=== PATIENT | male | born 1960 | race American Indian/Alaskan Native ===

== ENCOUNTER 2019-10-01 16:52 | Observation (INO) | payer BC ==
[2019-10-01] MEDS ORDERED: ASPIRIN 325 MG TAB PO ONE (17:04)
--- NOTE | 2019-10-01 17:04 | Event Note ---
ED Screening Note Date of service: 10/01/19 Time: 17:03 ED Screening Note: 59 y o male presents with worsening chest pain x 2 weeks started sob today cc of headache and left shoulder radiating pain no PMH hx BP eleva This initial assessment/diagnostic orders/clinical plan/treatment(s) is/are subject to change based on patients health status, clinical progression and re- assessment by fellow clinical providers in the ED. Further treatment and workup at subsequent clinical providers discretion. Patient/guardian urged not to elope from the ED as their condition may be serious if not clinically assessed and managed. Initial orders include: labs,ekg
[2019-10-01 17:26] LABS: Hematocrit 47.3 % (35.5-45.6); Hemoglobin 16.5 gm/dl (11.8-15.2); Mean Corpuscular HGB Conc 35 % (32-34); Mean Corpuscular Volume 89 fl (84-94); Platelet Count 152 K/mm3 (140-440); Red Blood Count 5.34 M/mm3 (3.65-5.03); Red Cell Distribution Width 13.3 % (13.2-15.2)
--- NOTE | 2019-10-01 17:42 | XRay Report ---
CHEST 2 VIEWS INDICATION / CLINICAL INFORMATION: Chest Pain. COMPARISON: Chest x-ray on 09/25/2018 FINDINGS: SUPPORT DEVICES: None. HEART / MEDIASTINUM: No significant abnormality. LUNGS / PLEURA: No significant pulmonary or pleural abnormality. No pneumothorax. ADDITIONAL FINDINGS: No significant additional findings. IMPRESSION: 1. No acute findings. Signer Name: Jm Marks MD Signed: 10/01/2019 5:37 PM Workstation Name: [id number]
[2019-10-01 17:46] LABS: BUN/Creatinine Ratio 14; Blood Urea Nitrogen 15 mg/dL (9-20); Calcium 8.9 mg/dL (8.4-10.2); Hemolysis Index 17
[2019-10-01 18:17] LABS: Platelet Estimate Consistent w Auto; Stomatocytes Few; Total Cells Counted 100
[2019-10-01] MEDS ORDERED: ONDANSETRON 4 MG/2 ML INJ IV ONE (20:21)
[2019-10-01] MEDS ORDERED: MORPHINE 4 MG/1 ML INJ IV ONE (20:21)
--- NOTE | 2019-10-01 20:26 | Emergency Department Report ---
ED Chest Pain HPI - General Chief Complaint: Chest Pain Stated Complaint: CHEST PAIN Time Seen by Provider: 10/01/19 20:14 Source: patient Mode of arrival: Ambulatory Limitations: No Limitations - History of Present Illness Initial Comments: Patient is 59 years old male with history of hypertension, not on any medication. Patient also had history of hyperlipidemia. Patient presented to the ER complaining of substernal chest pain, heaviness and tearing sometimes radiated to his back and to his left upper extremity and to his neck and jaw. Patient stated the pain started 1 week ago but today became worse. Patient describes his pain is 8 out of 10. Patient is also complaining of shortness of breath. Patient denies any fever or chills. MD Complaint: chest pain -: week(s) Pain Location: substernal Pain Radiation: LUE, back, neck, jaw/teeth Severity scale (0 -10): 6 Quality: heaviness, ripping Consistency: constant - Related Data Allergies Allergy/AdvReac Type Severity Reaction Status Date / Time No Known Allergies Allergy Unverified 10/01/19 16:55 Heart Score - HEART Score History: Moderately suspicious EKG: Non-specific Age: 45-65 Risk factors: 1-2 risk factors Troponin: < normal limit HEART Score: 4 - Critical Actions Critical Actions: 4-6 pts:12-16.6% risk of adverse cardiac event. Should be admitted ED Review of Systems ROS: Stated complaint: CHEST PAIN Other details as noted in HPI Comment: All other systems reviewed and negative Constitutional: denies: chills, fever Respiratory: denies: cough, shortness of breath, SOB with exertion, wheezing Cardiovascular: chest pain, palpitations Gastrointestinal: denies: abdominal pain, nausea, vomiting, diarrhea, constipation, hematemesis, melena, hematochezia Musculoskeletal: denies: back pain Neurological: denies: headache, weakness, numbness, paresthesias, confusion, abnormal gait ED Past Medical Hx - Past Medical History Previous Medical History?: No - Surgical History Past Surgical History?: Yes Additional Surgical History: achillies - Social History Smoking Status: Never Smoker Substance Use Type: Alcohol ED Physical Exam - General Limitations: No Limitations General appearance: alert, in no apparent distress - Head Head exam: Present: atraumatic, normocephalic, normal inspection - Eye Eye exam: Present: normal appearance, PERRL - ENT ENT exam: Present: normal exam, normal orophraynx, mucous membranes moist - Neck Neck exam: Present: normal inspection, full ROM. Absent: tenderness, meningismus, lymphadenopathy, thyromegaly - Respiratory Respiratory exam: Present: normal lung sounds bilaterally - Cardiovascular Cardiovascular Exam: Present: regular rate, normal rhythm, normal heart sounds - GI/Abdominal GI/Abdominal exam: Present: soft, normal bowel sounds. Absent: distended, tenderness, guarding, rebound, rigid, organomegaly, mass, bruit, pulsatile mass, hernia - Extremities Exam Extremities exam: Present: normal inspection, full ROM, normal capillary refill. Absent: tenderness, pedal edema, calf tenderness - Back Exam Back exam: Present: normal inspection, full ROM. Absent: CVA tenderness (R), CVA tenderness (L) - Neurological Exam Neurological exam: Present: alert, oriented X3, CN II-XII intact, normal gait, reflexes normal - Psychiatric Psychiatric exam: Present: normal mood - Skin Skin exam: Present: warm, intact, normal color ED Course Vital Signs 10/01/19 10/01/19 10/01/19 16:55 17:03 20:14 Temperature 99.3 F 99.3 F Pulse Rate 97 H 97 H 104 H Respiratory 20 20 22 Rate Blood Pressure 188/117 188/117 Blood Pressure 177/110 [Left] O2 Sat by Pulse 96 96 96 Oximetry 10/01/19 10/01/19 20:32 21:10 Temperature Pulse Rate 102 H 98 H Respiratory 20 Rate Blood Pressure 163/103 Blood Pressure 153/99 [Left] O2 Sat by Pulse 97 Oximetry ED Medical Decision Making - Lab Data Result diagrams: 10/01/19 17:10 10/01/19 17:10 - EKG Data -: EKG Interpreted by Oh EKG shows normal: sinus rhythm Rate: normal - EKG Data Interpretation: no acute changes - Radiology Data Radiology results: report reviewed - Medical Decision Making Patient is 59 years old male with history of hypertension, not on any medication. Patient also had history of hyperlipidemia. Patient presented to the ER complaining of substernal chest pain, heaviness and tearing sometimes radiated to his back and to his left upper extremity and to his neck and jaw. Patient stated the pain started 1 week ago but today became worse. Patient describes his pain is 8 out of 10. Patient is also complaining of shortness of breath. Patient denies any fever or chills. EKG showed no ST elevation. Labs reviewed and is unremarkable. Patient found to have a blood pressure of 180/117. Patient received labetalol 10 mg IV and morphine and Zofran. Patient stated that his pain is better. CTA chest and abdomen negative for acute finding. I discussed the patient with Dr. Alayna Wells, she agreed to admit the patient to medical service for further management. Critical Care Time: Yes Critical care time in (mins) excluding proc time.: 30 Critical care attestation.: If time is entered above; I have spent that time in minutes in the direct care of this critically ill patient, excluding procedure time. ED Disposition Clinical Impression: Unstable angina, Chest pain, Hypertensive urgency Disposition: 09 OP ADMIT IP TO THIS HOSP Is pt being admited?: Yes Condition: Stable Instructions: Angina (ED), Chest Pain (ED)
--- NOTE | 2019-10-01 21:47 | Cat Scan Report ---
CTA CHEST, ABDOMEN, AND PELVIS WITHOUT AND WITH CONTRAST INDICATION / CLINICAL INFORMATION: Chest pain, rule out aortic dissection.. TECHNIQUE: Axial CT images were obtained through the chest, abdomen, and pelvis before and after injection of 10 0 MLO Omnipaque 350 IV contrast. 3 plane MIP and/or 3D reconstructions were produced. All CT scans at this location are performed using CT dose reduction for ALARA by means of automated exposure control . COMPARISON: None available. FINDINGS: Heart: Normal heart size. No pericardial fluid. No significant coronary atherosclerosis is evident. Thoracic Aorta: No significant abnormality. Great Vessels: No significant abnormality. Pulmonary Arteries: Prominent caliber of the pulmonary trunk and main pulmonary arteries. The transve rse diameter of the pulmonary trunk is about 3.7 cm. Additional Chest Findings: No pleural fluid or pneumothorax. A focal groundglass nodule in the right lower lobe posteriorly on series 2 image 125 measures 2.4 x 2 x 2.9 cm. No other significant airspace opacity or nodule is identified. Abdominal Aorta: No significant abnormality. Renal arteries: No significant abnormality. There are 2 right renal arteries and 2 left renal arterie s. There are widely patent. Celiac artery: No significant abnormality. Superior Mesenteric Artery: No significant abnormality. Inferior mesenteric artery: No significant abnormality. Right Iliac Arteries: No significant abnormality.. Left Iliac Arteries: No significant abnormality.. Additional Abdominopelvic Findings: Extensive colonic diverticulosis. No evidence of acute diverticul itis. The liver, gallbladder, spleen, pancreas, adrenals, urinary tracts, and proximal gastrointestin al tract are grossly unremarkable. The appendix is normal. No pneumoperitoneum, ascites or organized fluid collection. No lymphadenopathy. Skeletal Structures: No significant abnormality. IMPRESSION: 1. No acute abnormality. 2. Prominence of the central pulmonary arteries is suggestive of underlying pulmonary hypertension. 3. Groundglass nodule measuring greater than 2 cm in average dimension in the right lower lobe is no tara. See below for recommendation. 4. Diverticulosis of the colon without evidence of acute diverticulitis. INCIDENTAL PULMONARY NODULE RECOMMENDATION Recommendation: Subsolid Nodule (Ground glass) >=6 mm - CT at 6-12 months to confirm persistence, then CT every 2 years until 5 years Note These recommendations do not apply to lung cancer screening, patients with immunosuppression, o r patients with known primary cancer. Note Newly detected indeterminate nodule in persons 35 years of age or older. Persons under the age of 35 should not receive follow-up unless there is a known primary cancer. Low Risk Patient -- minimal or absent history of smoking and of other known risk factors. High Risk Patient -- history of smoking or of other known risk factors. Nodule dimensions are average of long and short axes, rounded to the nearest millimeter. Based on 2017 Fleischner Society Guidelines found in Radiology 2017 284:228-243. [email or web address] Signer Name: Saman Driscoll MD Signed: 10/01/2019 9:42 PM Workstation Name: [id number]
[2019-10-01] MEDS ORDERED: MORPHINE 2 MG/1 ML INJ IV PRN (23:01)
[2019-10-01] MEDS ORDERED: ONDANSETRON 4 MG/2 ML INJ IV PRN (23:01)
[2019-10-01] MEDS ORDERED: ACETAMINOPHEN 325 MG TAB PO PRN (23:01)
--- NOTE | 2019-10-01 23:04 | History and Physical Report ---
History of Present Illness History of present illness: 59-year-old man with a known medical history comes emergency room with complaints of chest pain that started 1 month ago. Pain is in the epigastric area which he describes as a pressure-like sensation, dull, intermittent for hours, intensity 5/10, no radiation, cannot identify exacerbating or relieving factors. Admits to headache, hurting of his face, pain in his upper back. Patient has not seen a physician for his pain. He had his physical 3 months ago and he stated everything was fine. Denies nausea vomiting, admits to shortness of breath, diaphoresis, no palpitation. No recent stress test. Blood pressure very elevated upon arrival, status post IV labetalol with good results. The patient is being admitted for hypertensive urgency, chest pain. Review Of Systems: Constitutional: no weight loss, fever, chills Ears, eyes, nose, mouth and throat: no nasal congestion, no nasal discharge, no sinus pressure, blurry vision, diplopia Neck: No neck pain or rigidity. Cardiovascular: No palpitations, +chest pain Respiratory: + shortness of breath, no cough Gastrointestinal: No hematochezia, abdominal pain Genitourinary : no dysuria, frequency Musculoskeletal: no muscle ache , joint pain Integumentary: no rash, no pruritis Neurological: no parathesias, focal weakness Endocrine: no cold or heat intolerance, no polyuria or polydipsia Hematologic/Lymphatic: no easy bruising, no easy bleeding, no gland swelling Allergic/Immunologic: no urticaria, no angioedema. PAST MEDICAL HISTORY: None PAST SURGICAL HISTORY: Achilles tendon SOCIAL HISTORY: Social alcohol, no drugs, tobacco FAMILY HISTORY: Hypertension Medications and Allergies Allergies Allergy/AdvReac Type Severity Reaction Status Date / Time No Known Allergies Allergy Unverified 10/01/19 16:55 Active Meds: Active Medications Acetaminophen (Tylenol) 650 mg PO Q4H PRN PRN Reason: Pain MILD(1-3)/Fever >100.5/BARCLAY Enoxaparin Sodium (Enoxaparin) 40 mg SUB-Q QAM YAKOV Morphine Sulfate (Morphine) 2 mg IV Q4H PRN PRN Reason: Pain, Moderate (4-6) Ondansetron HCl (Zofran) 4 mg IV Q4H PRN PRN Reason: Nausea And Vomiting Sodium Chloride (Sodium Chloride Flush Syringe 10 Ml) 10 ml IV BID YAKOV Sodium Chloride (Sodium Chloride Flush Syringe 10 Ml) 10 ml IV PRN PRN PRN Reason: LINE FLUSH Exam - Physical Exam Narrative exam: Gen. appearance: Patient lying in bed, no apparent distress HEENT: Normocephalic, atraumatic, pupils equally round and reactive to light, extraocular movement intact, and no sclericterus,. No JVD or thyromegaly or nodule,neck supple, no carotid bruit ,mucous membranes moist, no exudate or erythema Heart: S1, S2, regular rate and rhythm Lungs: Clear bilaterally, breathing comfortable Abdomen: Positive bowel sounds, nontender, nondistended, no organomegaly Extremity: no edema, cyanosis, clubbing Skin: No rash, nodules, warm, dry Neuro: speech is fluent, cranial nerves II to XII intact, motor and sensory, sensory intact - Constitutional Vitals: Temp Pulse Resp BP Pulse Ox 99.3 F 98 H 20 153/99 97 10/01/19 17:03 10/01/19 21:10 10/01/19 21:10 10/01/19 21:10 10/01/19 21:10 Results - Labs CBC & Chem 7: 10/01/19 17:10 10/01/19 17:10 Labs: Abnormal lab results 10/01/19 Range/Units 17:10 RBC 5.34 H (3.65-5.03) M/mm3 Hgb 16.5 H (11.8-15.2) gm/dl Hct 47.3 H (35.5-45.6) % MCHC 35 H (32-34) % Seg Neuts % (Manual) 80.0 H (40.0-70.0) % Lymphocytes % (Manual) 7.0 L (13.4-35.0) % Monocytes % (Manual) 11.0 H (0.0-7.3) % Lymphocytes # (Manual) 0.5 L (1.2-5.4) K/mm3 - Imaging and Cardiology EKG: image reviewed Chest x-ray: report reviewed CT scan - abdomen: report reviewed CT scan - chest: report reviewed CT scan - pelvis: report reviewed Assessment and Plan Assessment Chest pain secondary to hypertensive urgency Check cardiac enzymes, stress test Start aspirin, IV morphine, consult cardiology Hypertensive urgency Start antihypertensive DVT prophylaxis
[2019-10-01] MEDS ORDERED: SODIUM CHLORIDE 0.45% 1000 ML 1,000 ML IV SCH (23:45)
[2019-10-01] MEDS ORDERED: ACETAMINOPHEN 325 MG TAB ONE (23:52)
[2019-10-02] MEDS ORDERED: hydrALAZINE 20 MG/1 ML INJ IV PRN (05:17)
[2019-10-02 05:26] LABS: Hematocrit 46.3 % (35.5-45.6); Hemoglobin 15.7 gm/dl (11.8-15.2); Mean Corpuscular HGB Conc 34 % (32-34); Mean Corpuscular Volume 90 fl (84-94); Red Blood Count 5.17 M/mm3 (3.65-5.03); Red Cell Distribution Width 13.3 % (13.2-15.2)
[2019-10-02 05:50] LABS: BUN/Creatinine Ratio 11; Blood Urea Nitrogen 12 mg/dL (9-20); Calcium 8.7 mg/dL (8.4-10.2); Hemolysis Index 10
[2019-10-02 05:51] LABS: Creatine Kinase MB < 1.0 ng/mL (0.0-4.0)
[2019-10-02 06:51] LABS: Band Neutrophils # (Manual) 0.1 K/mm3; Eosinophils % (Manual) 0 % (0.0-4.3); Total Cells Counted 100
[2019-10-02 06:57] LABS: Platelet Estimate Consistent w Auto; RBC Morphology Normal
[2019-10-02 06:59] LABS: Platelet Count 137 K/mm3 (140-440)
[2019-10-02] MEDS ORDERED: ENOXAPARIN 40 MG/0.4 ML INJ SUB-Q SCH (10:00)
[2019-10-02] MEDS ORDERED: ASPIRIN 81 MG TAB CHEW PO SCH (10:00)
[2019-10-02] MEDS ORDERED: amLODIPine 10 MG TAB PO SCH (10:00)
--- NOTE | 2019-10-02 10:04 | Discharge Summary ---
Providers - Providers Date of Admission: 10/01/19 22:49 Date of discharge: 10/02/19 Attending physician: TRACEY GIRON 10/01/19 23:01 Consult to Physician [CONS] Routine Comment: Consulting Provider: SANDRA KNIGHT Physician Instructions: Reason For Exam: cp Primary care physician: RASHEED BROTHERS Hospitalization Condition: Stable Hospital course: Patient is a 59 yo man with a history of Lung nodule (per Dr. 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 Rasheed Brothers) who presents to [facility] ED with chest pains/epigastric pains and SOB. He was found to have bp of 188/117 HR 97. He was treated with IV labetatol and admitted to the hospital. * CTA chest/abd/pelvis IMPRESSION: 1. No acute abnormality. 2. Prominence of the central pulmonary arteries is suggestive of underlying pulmonary hypertension. 3. Groundglass nodule measuring greater than 2 cm in average dimension in the right lower lobe is noted. See below for recommendation (Recommendation: Subsolid Nodule (Ground glass) >=6 mm - CT at 6-12 months to confirm persistence, then CT every 2 years until 5 years) 4. Diverticulosis of the colon without evidence of acute diverticulitis. * 2v CXR IMPRESSION: 1. No acute findings. Chest pain secondary to hypertensive urgency: stress test negative Hypertensive urgency, suspect new diagnosis of Hypertension: Start antihypertensive Incidental Lung nodule: 6 month follow up with PCP Dr. Brothers AAA by history Acute Sinusitis: zach luevano, Disposition: DC- TO HOME OR SELFCARE Time spent for discharge: 35 minutes Core Measure Documentation - Palliative Care Palliative Care/ Comfort Measures: Not Applicable - Core Measures Any of the following diagnoses?: none - VTE Discharge Requirements Deep Vein Thrombosis/Pulmonary Embolism Present on Admission: No Has pt received <5 days of overlap therapy or INR<2.0: No Anticoagulant overlap therapy prescribed at discharge: No Contraindication No Overlap Therapy order at DC: Not Indicated Exam - Physical Exam Narrative exam: Gen: WDWN, NAD, Awake, Alert, Orientated x 3 HEENT: NCAT, EOMI, PERRL, OP Clear Neck: supple, no adenopathy, no thyromegaly, no JVD CVS/Heart: RRR, normal S1S2, pulses present bilaterally Chest/Lungs: CTA B, Symmetrical chest expansion, good air entry bilaterally GI/Abdomen: soft, NTND, good bowel sounds, no guarding or rebound /Bladder: no suprapubic tenderness, no CVA or paraspinal tenderness Extermity/Skin: no c/c/e, no obvious rash MSK: FROM x 4 Neuro: CN 2-12 grossly intact, no new focal deficits Psych: calm - Constitutional Vitals: Temp Pulse Resp BP Pulse Ox 98.1 F 83 18 143/84 93 10/02/19 07:46 10/02/19 04:00 10/02/19 07:46 10/02/19 07:46 10/02/19 04:00 Plan Activity: other (no strenous activity unless cleared by PCP) Diet: low salt Special Instructions: record daily BP diary Follow up with: RASHEED BROTHERS MD [Primary Care Provider] - 3-5 Days MCKAYLA SHANKS MD [Staff Physician] - 7 Days Prescriptions: Amlodipine Besylate [Norvasc] 5 mg PO QDAY #30 tablet RX: Azithromycin [Zithromax Z-GABI] 1 dose PO DAILY #1 pack
--- NOTE | 2019-10-02 13:35 | Consultation ---
History of Present Illness Consult date: 10/02/19 Requesting physician: YOBANY MATHEWS Consult reason: chest pain History of present illness: the patient is 59 year old male with a past medical history of hypertension, not on any medication, HLP. He is previously unknown to our practice. He presented with c/o chest pain for approx 1 week prior to arrival. He describes his chest pain as a substernal heaviness which sometimes radiates to his back and to his left upper extremity and to his neck and jaw. Patient stated the pain started 1 week ago but yesterday became worse. Patient describes his pain is 8 out of 10. The pain was associated with some SOB. Pt denies any palpitations, n/v, diaphoresis, dizziness or syncope. On evaluation, pt is chest pain free. Pt was scheduled for treadmill stress test this AM. Past History Past Medical History: hypertension, hyperlipidemia Medications and Allergies Allergies Allergy/AdvReac Type Severity Reaction Status Date / Time No Known Allergies Allergy Unverified 10/01/19 16:55 Home Medications Medication Instructions Recorded Confirmed Last Taken Type No Known Home Medications [No 10/02/19 10/02/19 Unknown History Reported Home Medications] Active Meds: Active Medications Acetaminophen (Tylenol) 650 mg PO Q4H PRN PRN Reason: Pain MILD(1-3)/Fever >100.5/BARCLAY Last Admin: 10/01/19 23:53 Dose: 650 mg Documented by: Amlodipine Besylate (Amlodipine) 5 mg PO QDAY [facility] Last Admin: 10/02/19 12:44 Dose: 5 mg Documented by: Aspirin (Baby Aspirin) 81 mg PO QDAY [facility] Last Admin: 10/02/19 12:44 Dose: 81 mg Documented by: Enoxaparin Sodium (Enoxaparin) 40 mg SUB-Q QAM [facility] Last Admin: 10/02/19 12:43 Dose: 40 mg Documented by: Hydralazine HCl (Apresoline) 5 mg IV Q6H PRN PRN Reason: Hypertension Sodium Chloride (Nacl 0.45% 1000 Ml) 1,000 mls @ 75 mls/hr IV DIRECT [facility] Last Admin: 10/02/19 00:48 Dose: 75 mls/hr Documented by: Morphine Sulfate (Morphine) 2 mg IV Q4H PRN PRN Reason: Pain, Moderate (4-6) Last Admin: 10/02/19 00:53 Dose: 2 mg Documented by: Ondansetron HCl (Zofran) 4 mg IV Q4H PRN PRN Reason: Nausea And Vomiting Sodium Chloride (Sodium Chloride Flush Syringe 10 Ml) 10 ml IV BID YAKOV Last Admin: 10/02/19 12:44 Dose: 10 ml Documented by: Sodium Chloride (Sodium Chloride Flush Syringe 10 Ml) 10 ml IV PRN PRN PRN Reason: LINE FLUSH Last Admin: 10/02/19 00:59 Dose: 10 ml Documented by: Review of Systems Constitutional: no weight loss, no weight gain, no fever, no chills, no sweats Ears, nose, mouth and throat: no ear pain, no nose pain, no sinus pressure, no sinus pain Cardiovascular: chest pain, shortness of breath, dyspnea on exertion, high blood pressure, no orthopnea, no palpitations, no rapid/irregular heart beat, no edema, no syncope, no lightheadedness, no leg edema Respiratory: shortness of breath, dyspnea on exertion, no cough, no congestion, no wheezing, no pain on inspiration Gastrointestinal: no abdominal pain, no nausea, no vomiting, no diarrhea, no constipation, no change in bowel habits Genitourinary Male: no dysuria, no hematuria, no flank pain, no discharge, no urinary frequency, no urinary hesitancy Musculoskeletal: no neck stiffness, no neck pain, no low back pain, no shooting leg pain Integumentary: no rash, no pruritis, no redness, no sores, no wounds Neurological: no head injury, no paralysis, no weakness, no parathesias, no numbness, no tingling, no seizures Psychiatric: no anxiety Endocrine: no cold intolerance, no heat intolerance Hematologic/Lymphatic: no easy bruising, no easy bleeding Allergic/Immunologic: no urticaria Physical Examination Vital Signs Temp Pulse Resp BP Pulse Ox 99.3 F 97 H 20 188/117 96 10/01/19 16:55 10/01/19 16:55 10/01/19 16:55 10/01/19 16:55 10/01/19 16:55 General appearance: no acute distress HEENT: Positive: PERRL, Normocephaly, Mucus Membranes Moist Neck: Positive: neck supple, trachea midline Cardiac: Positive: Reg Rate and Rhythm, S1/S2 Lungs: Positive: Decreased Breath Sounds Neuro: Positive: Grossly Intact Abdomen: Negative: Tender Skin: Negative: Rash Musculoskeletal: No Pain Extremities: Absent: edema Results 10/02/19 04:54 10/02/19 04:54 Cardiac Enzymes 10/02/19 Range/Units 04:54 CK-MB (CK-2) < 1.0 (0.0-4.0) ng/mL CBC 10/01/19 10/02/19 Range/Units 17:10 04:54 WBC 7.5 5.5 (4.5-11.0) K/mm3 RBC 5.34 H 5.17 H (3.65-5.03) M/mm3 Hgb 16.5 H 15.7 H (11.8-15.2) gm/dl Hct 47.3 H 46.3 H (35.5-45.6) % Plt Count 152 137 L (140-440) K/mm3 Comprehensive Metabolic Panel 10/01/19 10/02/19 Range/Units 17:10 04:54 Sodium 139 139 (137-145) mmol/L Potassium 3.9 4.0 (3.6-5.0) mmol/L Chloride 100.2 101.7 (98-107) mmol/L Carbon Dioxide 25 22 (22-30) mmol/L BUN 15 12 (9-20) mg/dL Creatinine 1.1 1.1 (0.8-1.5) mg/dL Glucose 91 100 (75-100) mg/dL Calcium 8.9 8.7 (8.4-10.2) mg/dL - Imaging and Cardiology EKG: report reviewed, image reviewed EKG interpretations - Telemetry EKG Rhythm: Sinus Rhythm - EKG Sinus rhythms and dysrhythmias: sinus rhythm Assessment and Plan S/p treadmill stress test this AM which was negative - pt walked ~8mins, no chest pain on treadmill, no ECG changes, good exercise tolerance. Currently stable cardiac status. Chest pain currently resolved. AMI r/o. Pt may discharge from cardiology standpoint. Recommend follow up in our office with Dr. Coty Rubio within 1-2 weeks ([phone]). The patient has been seen in conjunction with Dr. Coty Rubio who agrees with the assessment and plan of care. - Patient Problems (1) Chest pain Current Visit: Yes Status: Resolved (2) Uncontrolled hypertension Current Visit: Yes Status: Chronic (3) Hyperlipidemia Current Visit: Yes Status: Chronic
[2019-10-02 14:05] VITALS: BP 147/98
== END 2019-10-02 18:21 | disposition home or self-care (01) ==
LOC: ED 16:52 → EEVIPCON 16:52 → 4A 22:49
PROVIDERS: ADMIT Internal Medicine; ATTEND Internal Medicine
DX: I16.0 Hypertensive urgency (principal); I20.0 Unstable angina; R07.89 Other chest pain
CPT/HCPCS: 36415; 71046; 71275; 74174; 80048; 82550; 82553; 83880; 84484; 85007; 85025; 87040; 93005; 93010; 93017; 96372; 96374; 96375; 96376; 99291; G0378; J1650; J2270; J2405; J7030; Q9967

== ENCOUNTER 2020-01-01 07:48 | Outpatient (CLI) | payer BC ==
--- NOTE | 2020-01-01 10:58 | Magnetic Resonance Report ---
MRI RIGHT KNEE WITHOUT CONTRAST INDICATION / CLINICAL INFORMATION: MAIN: RIGHT KNEE PAIN patient continued to move, repeated scans, best possible study.. TECHNIQUE: Multiplanar, multisequence MR images were obtained. No contrast used. COMPARISON: None available. FINDINGS: ACL: No significant abnormality. PCL: No significant abnormality. DISTAL QUADRICEPS TENDON: No significant abnormality. PATELLAR TENDON: No significant abnormality. MEDIAL MENISCUS: Displaced horizontal undersurface tear in the posterior horn with meniscal fragment flipped into the medial gutter (series 3 image 8). LATERAL MENISCUS: No significant abnormality. POSTEROLATERAL CORNER: No significant abnormality. MCL: No significant abnormality. LCL: No significant abnormality. DISTAL IT BAND: No significant abnormality. PATELLOFEMORAL ALIGNMENT: No significant abnormality. ARTICULAR CARTILAGE: Moderate tricompartmental chondrosis of greatest severity on the patella, where there is full-thickness fissure at the median ridge (series 2 image 12). JOINT SPACE: Small joint effusion with synovitis. No significant popliteal cyst. No intra-articular b odies. BONES: No significant bone marrow edema. No fracture. No osseous lesion. No osteophytes. SOFT TISSUES: No significant abnormality. ADDITIONAL FINDINGS: None. IMPRESSION: 1. Moderate tricompartmental chondrosis. 2. Degenerative horizontal tear of the posterior horn with undersurface flap displaced into the media l gutter. 3. Small effusion with synovitis. Report dictated by: Saman Driscoll MD Report dictated on: 01/01/2020 9:23 AM I have reviewed the images, agree with this report, and edited this report as needed. Signer Name: Fab Whalen MD FACR Signed: 01/01/2020 10:53 AM Workstation Name: [employer]
== END 2020-01-01 07:49 | disposition home or self-care (01) ==
LOC: MRI 07:48
PROVIDERS: ATTEND Internal Medicine
DX: S83.203S Other tear of unspecified meniscus, current injury, right knee, sequela (principal); M25.461 Effusion, right knee; M65.861 Other synovitis and tenosynovitis, right lower leg; X58.XXXS Exposure to other specified factors, sequela
CPT/HCPCS: 73721

== ENCOUNTER 2020-07-27 11:12 | Observation (INO) | payer BC ==
[2020-07-27] MEDS ORDERED: ASPIRIN 325 MG TAB PO ONE (11:33)
[2020-07-27 11:55] LABS: Basophils % (Auto) 0.4 % (0.0-1.8); Eosinophils # (Auto) 0.1 K/mm3 (0.0-0.4); Eosinophils % (Auto) 0.9 % (0.0-4.3); Hematocrit 50.7 % (35.5-45.6); Hemoglobin 17.5 gm/dl (11.8-15.2); Lymphocytes # (Auto) 1.9 K/mm3 (1.2-5.4); Mean Corpuscular HGB Conc 35 % (32-34); Mean Corpuscular Volume 90 fl (84-94); Monocytes # (Auto) 0.7 K/mm3 (0.0-0.8); Monocytes % (Auto) 8.6 % (0.0-7.3); Platelet Count 230 K/mm3 (140-440); Red Blood Count 5.62 M/mm3 (3.65-5.03); Red Cell Distribution Width 13.3 % (13.2-15.2)
[2020-07-27] MEDS ORDERED: NITROGLYCERIN 0.4 MG TAB SUBL SL PRN (12:03)
[2020-07-27] MEDS ORDERED: FAMOTIDINE 20 MG TAB PO ONE (12:03)
[2020-07-27] MEDS ORDERED: ACETAMINOPHEN 325 MG TAB PO ONE (12:03)
[2020-07-27 12:04] LABS: BUN/Creatinine Ratio 11; Blood Urea Nitrogen 11 mg/dL (9-20); Calcium 9.6 mg/dL (8.4-10.2); Hemolysis Index 10
--- NOTE | 2020-07-27 12:08 | Emergency Department Report ---
ED Chest Pain HPI - General Chief Complaint: Chest Pain Stated Complaint: CHETS PAIN Time Seen by Provider: 07/27/20 11:48 Source: patient Mode of arrival: Ambulatory Limitations: No Limitations - History of Present Illness Initial Comments: Patient is a 60-year-old F Pakistani male with a past medical history of hypertension hyper cholesterolemia who is presenting with chest pain. States pain has been progressively worsening over the last week. It is intermittent but can last up to several hours at a time. He denies nausea vomiting cough cold congestion fevers or chills. States there is no exertional component no association with lying flat. States he is very short of breath when the chest pain is present and it does hinder his activity. Patient in September 2019 did get admitted for chest pain and had a negative stress test at that time. Patient states after he was discharged he had a week of body aches and sick extreme fatigue. In retrospect patient believes he may have had COVID-19 as he had had recent travel to [place]. Patient states pain is different today than and during that episode. - Related Data Previous Rx's Medication Instructions Recorded Last Taken Type Acetaminophen [Acetaminophen TAB] 1 tab PO Q4H PRN #30 tablet 10/02/19 Unknown Rx Amlodipine Besylate [Norvasc] 5 mg PO QDAY #30 tablet 10/02/19 Unknown Rx Aspirin [Aspirin BABY CHEW TAB] 81 mg PO QDAY #30 tab.chew 10/02/19 Unknown Rx Azithromycin [Zithromax Z-GABI] 1 dose PO DAILY #1 pack 10/02/19 Unknown Rx Allergies Allergy/AdvReac Type Severity Reaction Status Date / Time No Known Allergies Allergy Verified 07/27/20 11:27 Heart Score - HEART Score History: Moderately suspicious EKG: Normal Age: 45-65 Risk factors: > 3 risk factors or hx of atherosclerotic disease Troponin: < normal limit HEART Score: 4 ED Review of Systems ROS: Stated complaint: CHETS PAIN Other details as noted in HPI Comment: All other systems reviewed and negative ED Past Medical Hx - Past Medical History Previous Medical History?: No - Surgical History Additional Surgical History: achillies - Social History Smoking Status: Never Smoker - Medications Home Medications: Home Medications Medication Instructions Recorded Confirmed Last Taken Type Acetaminophen [Acetaminophen TAB] 1 tab PO Q4H PRN #30 tablet 10/02/19 Unknown Rx Amlodipine Besylate [Norvasc] 5 mg PO QDAY #30 tablet 10/02/19 Unknown Rx Aspirin [Aspirin BABY CHEW TAB] 81 mg PO QDAY #30 tab.chew 10/02/19 Unknown Rx Azithromycin [Zithromax Z-GABI] 1 dose PO DAILY #1 pack 10/02/19 Unknown Rx ED Physical Exam - General Limitations: No Limitations General appearance: alert, in no apparent distress - Head Head exam: Present: atraumatic, normocephalic - Eye Eye exam: Present: normal appearance, PERRL, EOMI - ENT ENT exam: Present: mucous membranes moist - Neck Neck exam: Present: normal inspection - Respiratory Respiratory exam: Present: normal lung sounds bilaterally. Absent: respiratory distress, wheezes, rales, rhonchi - Cardiovascular Cardiovascular Exam: Present: regular rate, normal rhythm, normal heart sounds. Absent: systolic murmur, diastolic murmur, rubs, gallop - GI/Abdominal GI/Abdominal exam: Present: soft, normal bowel sounds. Absent: distended, tenderness, guarding, rebound - Rectal Rectal exam: Present: deferred - Extremities Exam Extremities exam: Present: normal inspection - Back Exam Back exam: Present: normal inspection - Neurological Exam Neurological exam: Present: alert, oriented X3 - Psychiatric Psychiatric exam: Present: normal affect, normal mood - Skin Skin exam: Present: warm, dry, intact, normal color. Absent: rash ED Course Vital Signs 07/27/20 07/27/20 07/27/20 11:31 12:44 12:46 Temperature 97.8 F Pulse Rate 99 H Respiratory 18 18 18 Rate Blood Pressure 178/117 O2 Sat by Pulse 97 99 Oximetry SENTHIL score - Senthil Score Age > 65: (0) No Aspirin use within the Past 7 Days: (0) No 3 or more CAD Risk Factors: (1) Yes 2 or more Angina events in past 24 hrs: (1) Yes Known CAD with more than 50% Stenosis: (0) No Elevated Cardiac Markers: (0) No ST Deviation Greater than 0.5mm: (0) No SENTHIL Score: 2 ED Medical Decision Making - Lab Data Result diagrams: 07/27/20 11:35 07/27/20 11:35 Lab Results 07/27/20 07/27/20 Range/Units 11:35 11:35 WBC 7.7 (4.5-11.0) K/mm3 RBC 5.62 H (3.65-5.03) M/mm3 Hgb 17.5 H (11.8-15.2) gm/dl Hct 50.7 H (35.5-45.6) % MCV 90 (84-94) fl MCH 31 (28-32) pg MCHC 35 H (32-34) % RDW 13.3 (13.2-15.2) % Plt Count 230 (140-440) K/mm3 Lymph % (Auto) 24.0 (13.4-35.0) % Harper % (Auto) 8.6 H (0.0-7.3) % Eos % (Auto) 0.9 (0.0-4.3) % Baso % (Auto) 0.4 (0.0-1.8) % Lymph # (Auto) 1.9 (1.2-5.4) K/mm3 [place] # (Auto) 0.7 (0.0-0.8) K/mm3 Eos # (Auto) 0.1 (0.0-0.4) K/mm3 Baso # (Auto) 0.0 (0.0-0.1) K/mm3 Seg Neutrophils % 66.1 (40.0-70.0) % Seg Neutrophils # 5.1 (1.8-7.7) K/mm3 Sodium 140 (137-145) mmol/L Potassium 4.2 (3.6-5.0) mmol/L Chloride 102.1 (98-107) mmol/L Carbon Dioxide 28 (22-30) mmol/L Anion Gap 14 mmol/L BUN 11 (9-20) mg/dL Creatinine 1.0 (0.8-1.3) mg/dL Estimated GFR > 60 ml/min BUN/Creatinine Ratio 11 % Glucose 107 H (75-100) mg/dL Calcium 9.6 (8.4-10.2) mg/dL Troponin T < 0.010 (0.00-0.029) ng/mL - EKG Data -: EKG Interpreted by [place] EKG shows normal: sinus rhythm, axis, intervals, QRS complexes, ST-T waves Rate: normal - EKG Data Interpretation: normal EKG - Radiology Data CXR wnl - Medical Decision Making Patient is a 60-year-old F Pakistani male was presented with chest pain. Patient has a heart score 4. Spoke with Dr. fortune cardiology team and he he will see the patient and give recommendations on further management. Critical care attestation.: If time is entered above; I have spent that time in minutes in the direct care of this critically ill patient, excluding procedure time. ED Disposition Clinical Impression: Hypertensive urgency Chest pain Qualifiers: Chest pain type: unspecified Qualified Code(s): R07.9 - Chest pain, unspecified Disposition: 09 OP ADMIT IP TO THIS HOSP Is pt being admited?: Yes Does the pt Need Aspirin: No Condition: Stable Instructions: Chest Pain (ED), Nonspecific Chest Pain, Adult Time of Disposition: 13:20
--- NOTE | 2020-07-27 12:19 | XRay Report ---
XR chest routine 2V INDICATION / CLINICAL INFORMATION: Chest Pain COMPARISON: 10/01/2019 FINDINGS: SUPPORT DEVICES: None. HEART / MEDIASTINUM: No significant abnormality. LUNGS / PLEURA: Lungs are clear. Costophrenic sulci are sharp. No pneumothorax. ADDITIONAL FINDINGS: No significant additional findings. IMPRESSION: 1. No acute findings. Signer Name: Karl Amaro MD Signed: 07/27/2020 12:15 PM Workstation Name: [id number]
[2020-07-27] MEDS ORDERED: SODIUM CHLORIDE 0.9% 500 ML 500 ML IV SCH (15:00)
--- NOTE | 2020-07-27 15:13 | Consultation ---
History of Present Illness Consult date: 07/27/20 Requesting physician: SUSANNA HONG Consult reason: chest pain History of present illness: The patient is 60 year old male with a past medical history of hypertension, not on any medication, HLP. He has been seen by our practice on a prior admission. He presented with c/o chest pain for the past several weeks. He describes his chest pain as an intermittent, nonexertional left-sided pressure which sometimes radiates to his upper back and into his left shoulder. He denies any clear aggravating or alleviating factors. No associated SOB, palpitations, n/v, diaphoresis, dizziness or syncope. Of note, pt was admitted here in September 2019 for evaluation of chest pain. He underwent treadmill stress test which was negative - pt walked ~8mins, no chest pain on treadmill, no ECG changes, good exercise tolerance. Patient states after he was discharged he had a week of body aches, fever and extreme fatigue. In retrospect patient believes he may have had COVID-19 as he had had recent travel to [place]. Patient states pain is different today than and during that episode. Past History Past Medical History: hypertension, hyperlipidemia Social history: , alcohol abuse (socially). denies: smoking Medications and Allergies Allergies Allergy/AdvReac Type Severity Reaction Status Date / Time No Known Allergies Allergy Verified 07/27/20 11:27 Home Medications Medication Instructions Recorded Confirmed Last Taken Type Acetaminophen [Acetaminophen TAB] 1 tab PO Q4H PRN #30 tablet 10/02/19 Unknown Rx Amlodipine Besylate [Norvasc] 5 mg PO QDAY #30 tablet 10/02/19 Unknown Rx Aspirin [Aspirin BABY CHEW TAB] 81 mg PO QDAY #30 tab.chew 10/02/19 Unknown Rx Azithromycin [Zithromax Z-GABI] 1 dose PO DAILY #1 pack 10/02/19 Unknown Rx Active Meds: Active Medications Sodium Chloride (Nacl 0.9% 500 Ml) 500 mls @ 50 mls/hr IV DIRECT YAKOV Stop: 07/28/20 00:59 Nitroglycerin (Nitroglycerin 0.4 Mg Tab Subl) 0.4 mg SL .Q5MIN PRN PRN Reason: Chest Pain Review of Systems Constitutional: no weight loss, no weight gain, no fever, no chills, no sweats Ears, nose, mouth and throat: no ear pain, no nose pain, no sinus pressure, no sinus pain Cardiovascular: chest pain, no orthopnea, no palpitations, no rapid/irregular heart beat, no edema, no syncope, no lightheadedness, no shortness of breath, no dyspnea on exertion, no leg edema Respiratory: no cough, no shortness of breath, no dyspnea on exertion, no congestion, no wheezing, no pain on inspiration Gastrointestinal: no abdominal pain, no nausea, no vomiting, no diarrhea, no constipation, no change in bowel habits Genitourinary Male: no dysuria, no hematuria, no flank pain, no discharge, no urinary frequency, no urinary hesitancy Musculoskeletal: no neck stiffness, no neck pain, no shooting arm pain, no arm numbness/tingling, no low back pain, no shooting leg pain Integumentary: no rash, no pruritis, no redness, no sores, no wounds Neurological: no head injury, no paralysis, no weakness, no parathesias, no numbness, no tingling, no seizures, no syncope Psychiatric: no anxiety Endocrine: no cold intolerance, no heat intolerance Hematologic/Lymphatic: no easy bruising Allergic/Immunologic: no urticaria Physical Examination Vital Signs Temp Pulse Resp BP Pulse Ox 97.8 F 99 H 18 178/117 97 07/27/20 11:31 07/27/20 11:31 07/27/20 11:31 07/27/20 11:31 07/27/20 11:31 General appearance: no acute distress HEENT: Positive: PERRL, Normocephaly, Mucus Membranes Moist Neck: Positive: neck supple, trachea midline Cardiac: Positive: Reg Rate and Rhythm, S1/S2 Lungs: Positive: Decreased Breath Sounds Neuro: Positive: Grossly Intact Abdomen: Negative: Tender Skin: Negative: Rash Musculoskeletal: No Pain Extremities: Absent: edema Results 07/27/20 11:35 07/27/20 11:35 CBC 07/27/20 Range/Units 11:35 WBC 7.7 (4.5-11.0) K/mm3 RBC 5.62 H (3.65-5.03) M/mm3 Hgb 17.5 H (11.8-15.2) gm/dl Hct 50.7 H (35.5-45.6) % Plt Count 230 (140-440) K/mm3 Lymph # (Auto) 1.9 (1.2-5.4) K/mm3 [place] # (Auto) 0.7 (0.0-0.8) K/mm3 Eos # (Auto) 0.1 (0.0-0.4) K/mm3 Baso # (Auto) 0.0 (0.0-0.1) K/mm3 Comprehensive Metabolic Panel 07/27/20 Range/Units 11:35 Sodium 140 (137-145) mmol/L Potassium 4.2 (3.6-5.0) mmol/L Chloride 102.1 (98-107) mmol/L Carbon Dioxide 28 (22-30) mmol/L BUN 11 (9-20) mg/dL Creatinine 1.0 (0.8-1.3) mg/dL Glucose 107 H (75-100) mg/dL Calcium 9.6 (8.4-10.2) mg/dL - Imaging and Cardiology Echo: pending EKG: report reviewed, image reviewed EKG interpretations - Telemetry EKG Rhythm: Sinus Rhythm - EKG Sinus rhythms and dysrhythmias: sinus rhythm Assessment and Plan Pt presents with recurrent chest pain. Treadmill stress test done 09/2019 was negative - pt walked ~8mins, no chest pain on treadmill, no ECG changes, good exercise tolerance. AMI r/o. Coronary angiography recommended for definitive diagnosis. Indications, potential risks and benefits of LHC reviewed with pt and he is agreeable to proceed with LHC in AM. NPO after MN. Optimize anti-ischemic and anti-hypertensive regimen. Obtain tte. Will follow. The patient has been seen in conjunction with Dr. Colin who agrees with the assessment and plan of care. - Patient Problems (1) Chest pain Current Visit: Yes Status: Acute Qualifiers: Chest pain type: unspecified Qualified Code(s): R07.9 - Chest pain, unspecified (2) Uncontrolled hypertension Current Visit: Yes Status: Chronic (3) Hyperlipidemia Current Visit: Yes Status: Chronic
[2020-07-27] MEDS ORDERED: METOPROLOL TARTRATE 50 MG TAB PO SCH ×2 (15:31→22:00)
--- NOTE | 2020-07-28 01:47 | History and Physical Report ---
History of Present Illness Date of examination: 07/27/20 Date of admission: 07/27/20 13:21 Chief complaint: Chest pain for 1 week History of present illness: 60-year-old F [place]ian male with a past medical history of hypertension hyper cholesterolemia who is presenting with chest pain. States pain has been progressively worsening over the last week. It is intermittent but can last up to several hours at a time. He denies nausea vomiting cough cold congestion f andrés or chills. States there is no exertional component no association with lying flat. States he is very short of breath when the chest pain is present and it does hinder his activity. Patient in September 2019 did get admitted for chest pain and had a negative stress test at that time. Patient states after he was discharged he had a week of body aches and sick extreme fatigue. In retrospect patient believes he may have had COVID-19 as he had had recent travel to [place]. Patient states pain is different today than and during that episode. Heart Score - HEART Score History: Moderately suspicious EKG: Normal Age: 45-65 Risk factors: > 3 risk factors or hx of atherosclerotic disease Troponin: < normal limit HEART Score: 4 - Past Medical History Previous Medical History?: No - Surgical History Additional Surgical History: achillies - Social History Smoking Status: Never Smoker Family History Htn - Medications Home Medications: Home Medications Medication Instructions Recorded Confirmed Last Taken Type Acetaminophen [Acetaminophen TAB] 1 tab PO Q4H PRN #30 tablet 10/02/19 Unknown Rx Amlodipine Besylate [Norvasc] 5 mg PO QDAY #30 tablet 10/02/19 Unknown Rx Aspirin [Aspirin BABY CHEW TAB] 81 mg PO QDAY #30 tab.chew 10/02/19 Unknown Rx Azithromycin [Zithromax Z-GABI] 1 dose PO DAILY #1 pack 10/02/19 Unknown Rx Review of Systems ROS: Stated complaint: CHETS PAIN Other details as noted in HPI Comment: All other systems reviewed and negative Past History Past Medical History: hypertension, hyperlipidemia Social history: , alcohol abuse (socially). denies: smoking Medications and Allergies Allergies Allergy/AdvReac Type Severity Reaction Status Date / Time No Known Allergies Allergy Verified 07/27/20 11:27 Home Medications Medication Instructions Recorded Confirmed Last Taken Type Multivitamin 1 tab PO DAILY 07/27/20 07/27/20 Unknown History Active Meds: Active Medications Aspirin (Aspirin 325 Mg Tab) 325 mg PO QDAY [facility] Atorvastatin Calcium (Atorvastatin 40 Mg Tab) 80 mg PO QHS [facility] Last Admin: 07/27/20 21:53 Dose: 80 mg Documented by: Isosorbide Mononitrate (Isosorbide Mononitrate Er 30 Mg Tab) 30 mg PO QDAY [facility] Metoprolol Tartrate (Metoprolol Tartrate 50 Mg Tab) 50 mg PO BID [facility] Last Admin: 07/27/20 21:54 Dose: 50 mg Documented by: Nitroglycerin (Nitroglycerin 0.4 Mg Tab Subl) 0.4 mg SL .Q5MIN PRN PRN Reason: Chest Pain Exam - Constitutional Vitals: Temp Pulse Resp BP Pulse Ox 98.0 F 64 20 131/82 95 07/27/20 23:31 07/27/20 23:31 07/27/20 23:31 07/27/20 23:31 07/27/20 23:31 General appearance: Present: no acute distress, well-nourished - EENT Eyes: Present: PERRL ENT: hearing intact, clear oral mucosa - Neck Neck: Present: supple, normal ROM - Respiratory Respiratory effort: normal Respiratory: bilateral: CTA - Cardiovascular Heart rate: 78 Rhythm: regular Heart Sounds: Present: S1 & S2. Absent: rub, click - Extremities Extremities: pulses symmetrical, No edema Peripheral Pulses: within normal limits - Abdominal General gastrointestinal: Present: soft, non-tender, non-distended, normal bowel sounds Male genitourinary: Present: normal - Integumentary Integumentary: Present: clear, warm, dry - Musculoskeletal Musculoskeletal: gait normal, strength equal bilaterally - Psychiatric Psychiatric: appropriate mood/affect, intact judgment & insight - Neurologic Neurologic: CNII-XII intact, moves all extremities HEART Score - HEART Score EKG: Normal Age: 45-65 Risk factors: > 3 risk factors or hx of atherosclerotic disease Troponin: Troponin T < 0.010 ng/mL (0.00-0.029) 07/27/20 19:07 Troponin: < normal limit Results - Labs CBC & Chem 7: 07/27/20 11:35 07/27/20 11:35 Labs: Laboratory Last Values WBC 7.7 K/mm3 (4.5-11.0) 07/27/20 11:35 RBC 5.62 M/mm3 (3.65-5.03) H 07/27/20 11:35 Hgb 17.5 gm/dl (11.8-15.2) H 07/27/20 11:35 Hct 50.7 % (35.5-45.6) H 07/27/20 11:35 MCV 90 fl (84-94) 07/27/20 11:35 MCH 31 pg (28-32) 07/27/20 11:35 MCHC 35 % (32-34) H 07/27/20 11:35 RDW 13.3 % (13.2-15.2) 07/27/20 11:35 Plt Count 230 K/mm3 (140-440) 07/27/20 11:35 Lymph % (Auto) 24.0 % (13.4-35.0) 07/27/20 11:35 [place] % (Auto) 8.6 % (0.0-7.3) H 07/27/20 11:35 Eos % (Auto) 0.9 % (0.0-4.3) 07/27/20 11:35 Baso % (Auto) 0.4 % (0.0-1.8) 07/27/20 11:35 Lymph # (Auto) 1.9 K/mm3 (1.2-5.4) 07/27/20 11:35 [place] # (Auto) 0.7 K/mm3 (0.0-0.8) 07/27/20 11:35 Eos # (Auto) 0.1 K/mm3 (0.0-0.4) 07/27/20 11:35 Baso # (Auto) 0.0 K/mm3 (0.0-0.1) 07/27/20 11:35 Seg Neutrophils % 66.1 % (40.0-70.0) 07/27/20 11:35 Seg Neutrophils # 5.1 K/mm3 (1.8-7.7) 07/27/20 11:35 Sodium 140 mmol/L (137-145) 07/27/20 11:35 Potassium 4.2 mmol/L (3.6-5.0) 07/27/20 11:35 Chloride 102.1 mmol/L (98-107) 07/27/20 11:35 Carbon Dioxide 28 mmol/L (22-30) 07/27/20 11:35 Anion Gap 14 mmol/L 07/27/20 11:35 BUN 11 mg/dL (9-20) 07/27/20 11:35 Creatinine 1.0 mg/dL (0.8-1.3) 07/27/20 11:35 Estimated GFR > 60 ml/min 07/27/20 11:35 BUN/Creatinine Ratio 11 % 07/27/20 11:35 Glucose 107 mg/dL (75-100) H 07/27/20 11:35 Calcium 9.6 mg/dL (8.4-10.2) 07/27/20 11:35 Troponin T < 0.010 ng/mL (0.00-0.029) 07/27/20 19:07 - Imaging and Cardiology EKG: report reviewed (NSR ) [place]/IV: Voiding Method Toilet IV Catheter Type [Right INT / Saline Lock Forearm] Assessment and Plan Advance Directives: Yes (Full code) Plan of care discussed with patient/family: Yes - Patient Problems (1) Acute coronary syndrome Current Visit: Yes Status: Acute Plan to address problem: Serial Troponins Lexiscan/Ccath in AM Had Lexiscan 2 years ago which was normal (2) Hypertensive urgency Current Visit: Yes Status: Acute Plan to address problem: Non compliant Valsartan and coreg started (3) Hyperlipidemia Current Visit: Yes Status: Chronic Qualifiers: Hyperlipidemia type: mixed hyperlipidemia Qualified Code(s): E78.2 - Mixed hyperlipidemia Plan to address problem: Cont statins (4) Polycythemia due to fall in plasma volume Current Visit: Yes Status: Chronic Plan to address problem: IV fluids for now (5) DVT prophylaxis Current Visit: Yes Status: Acute Plan to address problem: on Heparin and GI prophylaxis
[2020-07-28] MEDS ORDERED: VALSARTAN 160MG TAB PO SCH ×2 (01:52→22:00)
[2020-07-28] MEDS: HEPARIN 5,000 UNIT/1 ML VIAL SUB-Q SCH ×2 (02:00→09:53)
[2020-07-28 05:44] LABS: Basophils % (Auto) 0.4 % (0.0-1.8); Eosinophils # (Auto) 0.1 K/mm3 (0.0-0.4); Eosinophils % (Auto) 1.9 % (0.0-4.3); Hemoglobin 17.8 gm/dl (11.8-15.2); Lymphocytes # (Auto) 2.4 K/mm3 (1.2-5.4); Lymphocytes % (Auto) 34.5 % (13.4-35.0); Mean Corpuscular HGB Conc 35 % (32-34); Mean Corpuscular Volume 91 fl (84-94); Monocytes # (Auto) 0.8 K/mm3 (0.0-0.8); Monocytes % (Auto) 11.1 % (0.0-7.3); Platelet Count 204 K/mm3 (140-440); Red Blood Count 5.62 M/mm3 (3.65-5.03); Red Cell Distribution Width 12.9 % (13.2-15.2)
[2020-07-28 05:55] LABS: INR 1.03 (0.87-1.13)
[2020-07-28 06:06] LABS: BUN/Creatinine Ratio 13; Blood Urea Nitrogen 18 mg/dL (9-20); Calcium 9.2 mg/dL (8.4-10.2); Chol/HDL Ratio 3.24 %; HDL Cholesterol 62 mg/dL (40-59); Hemolysis Index 6; LDL Cholesterol,Direct 132 mg/dL (50-130)
[2020-07-28] MEDS ORDERED: HEPARIN/NS 5000 UNIT/500ML 1,000 ML IR ONE (07:05)
[2020-07-28] MEDS ORDERED: SODIUM CHLORIDE 0.9% 500 ML 500 ML ONE (07:11)
[2020-07-28] MEDS ORDERED: ASPIRIN 325 MG TAB ONE (07:22)
[2020-07-28] MEDS: MIDAZOLAM 2 MG/2 ML INJ ONE ×2 (07:53→08:07)
[2020-07-28] MEDS: fentaNYL 100 MCG/2 ML INJ ONE ×2 (07:53→08:07)
[2020-07-28] MEDS: LIDOCAINE (2%) 20 MG/1 ML VIAL 20 ML MDV INFILTRATI ONE ×2 (07:53→08:10)
[2020-07-28] MEDS: NITROGLYCERIN SYRINGE 3 ML ONE ×2 (07:54→08:12)
[2020-07-28] MEDS: HEPARIN 10,000 UNITS/10 ML VIAL ONE ×2 (07:54→08:12)
[2020-07-28] MEDS: VERAPAMIL 5 MG/2 ML INJ ONE ×2 (07:55→08:12)
[2020-07-28] MEDS ORDERED: SODIUM CHLORIDE 0.9% 1000 ML 1,000 ML IV SCH (08:45)
--- NOTE | 2020-07-28 08:47 | Progress Note ---
Assessment and Plan pt has patent coronaries and normal lv function, on cath, cont iv fluids post cath, bp control norvasc 5mg and toprol xl 50mg and asa 81 mg and lipitor 40mg and discuss with pt and and followup with pcp dr reynoso. - Patient Problems (1) Chest pain Current Visit: Yes Status: Acute Qualifiers: Chest pain type: unspecified Qualified Code(s): R07.9 - Chest pain, unspecified (2) Hypertensive urgency Current Visit: Yes Status: Acute (3) Hyperlipidemia Current Visit: Yes Status: Chronic Qualifiers: Hyperlipidemia type: mixed hyperlipidemia Qualified Code(s): E78.2 - Mixed hyperlipidemia Subjective Date of service: 07/28/20 Principal diagnosis: chest pain Interval history: chest has improved Objective Vital Signs Temp Pulse Resp BP BP Pulse Ox 07/28/20 05:06 98.2 F 67 20 124/90 97 07/28/20 04:03 63 07/27/20 23:31 98.0 F 64 20 131/82 95 07/27/20 21:54 98 H 142/95 07/27/20 20:53 97.9 F 98 H 18 142/95 94 07/27/20 20:04 79 18 140/93 98 07/27/20 20:03 18 98 07/27/20 18:08 98.8 F 78 18 147/96 96 07/27/20 12:46 18 99 07/27/20 12:44 18 07/27/20 11:31 97.8 F 99 H 18 178/117 97 - Physical Examination HEENT: Positive: PERRL, Normocephaly, Mucus Membranes Moist Neck: Positive: neck supple, trachea midline Cardiac: Positive: Reg Rate and Rhythm Lungs: Positive: clear to auscultation Neuro: Positive: Grossly Intact Abdomen: Negative: Tender Skin: Negative: Rash Incision: Cardiac Cath Site (no hematoma) Musculoskeletal: No Pain Extremities: Absent: edema - Labs and Meds Coagulation 07/28/20 Range/Units 05:12 PT 13.3 (12.2-14.9) Sec. INR 1.03 (0.87-1.13) Lipids 07/28/20 Range/Units 05:12 Triglycerides 134 (2-149) mg/dL Cholesterol 201 H (50-199) mg/dL HDL Cholesterol 62 H (40-59) mg/dL Cholesterol/HDL Ratio 3.24 % CBC 07/27/20 07/28/20 Range/Units 11:35 05:12 WBC 7.7 6.9 (4.5-11.0) K/mm3 RBC 5.62 H 5.62 H (3.65-5.03) M/mm3 Hgb 17.5 H 17.8 H (11.8-15.2) gm/dl Hct 50.7 H 51.0 H (35.5-45.6) % Plt Count 230 204 (140-440) K/mm3 Lymph # (Auto) 1.9 2.4 (1.2-5.4) K/mm3 [place] # (Auto) 0.7 0.8 (0.0-0.8) K/mm3 Eos # (Auto) 0.1 0.1 (0.0-0.4) K/mm3 Baso # (Auto) 0.0 0.0 (0.0-0.1) K/mm3 Comprehensive Metabolic Panel 07/27/20 07/28/20 Range/Units 11:35 05:12 Sodium 140 141 (137-145) mmol/L Potassium 4.2 4.4 (3.6-5.0) mmol/L Chloride 102.1 102.3 (98-107) mmol/L Carbon Dioxide 28 32 H (22-30) mmol/L BUN 11 18 (9-20) mg/dL Creatinine 1.0 1.4 H (0.8-1.3) mg/dL Glucose 107 H 103 H (75-100) mg/dL Calcium 9.6 9.2 (8.4-10.2) mg/dL - Imaging and Cardiology EKG: report reviewed (NSR ) Echo: pending Cardiac cath: report reviewed (patent coronaries and left dominant and normal lv function) - Telemetry EKG Rhythm: Sinus Rhythm - EKG Sinus rhythms and dysrhythmias: sinus rhythm
[2020-07-28] MEDS ORDERED: traMADol 50 MG TAB PO PRN (09:00)
[2020-07-28] MEDS ORDERED: ASPIRIN 325 MG TAB PO SCH (10:00)
[2020-07-28] MEDS ORDERED: ASPIRIN 81 MG TAB CHEW PO SCH (10:00)
[2020-07-28] MEDS ORDERED: HYDROcodone/ACETAMINOPHEN 5-325 MG TAB PO PRN (10:00)
--- NOTE | 2020-07-28 10:17 | Cardiac Catherization Report ---
PRIMARY CARE PHYSICIAN: Estrada Parsons MD CLINICAL INFORMATION: This is a 60-year-old male with hypertension, hyperlipidemia, chest pain, despite negative stress test, here for suspected coronary artery disease. The patient was done with moderate sedation started at 0805 hours, finished at 0821 hours, which is 60 minutes of moderate sedation. Procedure was done in the right radial artery, sterile technique, local anesthesia, 6-[place]ian radial sheath inserted. Left system engaged with JL3.5 catheter, left main is large and patent, trifurcates into large LAD with minimal coronary artery disease. Ramus is medium caliber vessel patent with upper and lower branch patent. Circumflex is a large dominant vessel, patent AV groove. OM1 is small caliber vessel. OM2 medium caliber vessel, patent. LPDA medium caliber vessel, patent. RCA is a small nondominant vessel. LV gram done in [facility] shows normal LV function, EF of 60-65% lvedp 12 mmHg, LV is 127mm hg, aortic is 127/85. No gradient across the aortic valve on pullback. 5-[place]amanian catheters all taken over guidewire, 6-[place] radial sheath was discontinued. Radial dressing applied. No hematoma, no bleeding. SUMMARY: Left main patent, left anterior descending patent, circumflex dominant, patent, ramus patent, OM1 and OM2 patent, LPDA patent. RCA small, nondominant, and patent. Aggressive risk factor modification. Discussed this with the patient and the patient's family. JOB# [id number] ALICIA/REJI BLOCK
[2020-07-28 12:33] VITALS: BP 123/87
[2020-07-29] MEDS ORDERED: METOPROLOL SUCCINATE XL 50 MG TAB PO SCH (10:00)
[2020-07-29] MEDS ORDERED: amLODIPine 5 MG TAB PO SCH (10:00)
== END 2020-07-28 14:02 | disposition home or self-care (01) ==
LOC: EEVIPCON 11:12 → ED 11:12 → 4A 13:21
PROVIDERS: ADMIT Internal Medicine; ATTEND Internal Medicine
DX: I24.9 Acute ischemic heart disease, unspecified (principal); I16.0 Hypertensive urgency; D75.1 Secondary polycythemia; E78.2 Mixed hyperlipidemia; E78.00 Pure hypercholesterolemia, unspecified; Z98.890 Other specified postprocedural states; Z79.82 Long term (current) use of aspirin
CPT/HCPCS: 36415; 71046; 80048; 80061; 82962; 84484; 85025; 85610; 93005; 93306; 93458; 99285; A9270; C1894; G0378; J1644; J2250; J3010; J7040; Q9967